=== PATIENT | female | born 1960 | race Caucasian/White ===

== ENCOUNTER 2020-03-29 12:51 | Emergency (ER) | payer OTHER, SELFPAY ==
[2020-03-29 13:21] VITALS: BP 175/83; PULSE 75; RESP 16; TEMP 36.1; O2SAT 99; BMI 26.5
--- NOTE | 2020-03-29 13:51 | ED.GENADULT ---
HPI - General Adult General Chief complaint: General Medical Stated complaint: hi bp Time Seen by Provider: 03/29/20 13:51 Source: patient Mode of arrival: ambulatory Limitations: no limitations History of Present Illness HPI narrative: THIS IS A 59 YEARS OLD FEMALE PRESENTED TO THE EMERGENCY DEPARTMENT WITH A CHIEF COMPLAINT OF ELEVATED BLOOD PRESSURE. SHE REPORTS A MULTIPLE SIDE EFFECTS FROM BLOOD PRESSURE MEDICATION SHE STATES SHE IS VERY SENSITIVE TO MEDICATION. SHE HAS NO CHEST PAIN, NO SHORTNESS OF BREATH SHE APPEAR ANXIOUS. SHE HAS BEEN ON [employer]CIUM CHANNEL JOSE, BETA JOSE SHE HAD A REACTION OF 0 ABOVE MEDICATION Onset (ago): month(s) Radiation: non-radiation Severity: mild Quality: other Relieving factors: none Exacerbating factors: none Associated symptoms: denies other symptoms Related Data Allergies Allergy/AdvReac Type Severity Reaction Status Date / Time acetaminophen [From Percocet] Allergy Palpitation Verified 03/29/20 13:28 s Iodinated Contrast Media Allergy Palpitation Verified 03/29/20 13:28 s morphine Allergy Palpitation Verified 03/29/20 13:28 s oxycodone [From Percocet] Allergy Palpitation Verified 03/29/20 13:28 s Review of Systems Review of Systems: Yes all other systems are reviewed and are negative Cardiovascular: Cardiovascular: Denies chest pain, Denies chest pain at rest, Denies chest pain with activity, Denies dyspnea and Denies dyspnea on exertion Respiratory: Respiratory: Reports no additional respiratory complaints, Denies dyspnea and Denies dyspnea on exertion Gastrointestinal: Gastrointestinal: Denies no additional gastrointestinal complaints PMFSH Past Medical History Medical History Anxiety Depression Fibromyalgia HTN (hypertension) Hypothyroid Social History Social History Smoking Status: Never smoker Use of substances other than those prescribed or required for medical reasons: No Advance Directives: No Advance Directives Information Provided: No Physical Exam Vital Signs: Vital Signs: Last Vital Signs Temp 97.4 F 03/29/20 15:52 Pulse 79 03/29/20 15:52 Resp 16 03/29/20 15:52 BP 152/77 H 03/29/20 15:52 Pulse Ox 99 03/29/20 15:52 Body Mass Index 26.5 Const: General: cooperative Orientation/consciousness: oriented to person, oriented to place and patient oriented x3 HENMT: Head: Yes normal to inspection Face and sinus: Yes normal facial exam Mouth: Normal oral and palatal mucosa present Neck: Neck: Yes normal visual inspection and Yes full ROM Resp: Effort & Inspection: normal respiratory effort and able to speak in complete sentences Cardio: Jugular venous distension: no JVD Rate: regular rate Rhythm: regular rhythm GI: Inspection: Yes normal to inspection Palpation (GI): Soft to palpation, nontender and no guarding Skin: General skin exam: no rashes or lesions noted and elasticity normal Neuro: General: oriented to person, oriented to place and patient oriented x3 Course Reevaluation(s) Reevaluation #1: RE-EVALUATION OR DEPRESSION AT THIS TIME , SHE REMAIN HEMODYNAMICALLY STABLE, BLOOD PRESSURE IS BETTER, SHE IS CHEST PAIN-FREE NO DYSPNEA. THE LUMP TESTS WERE REVIEWED WITH THE PATIENT WELL THE CHEST X-RAY AND THE EKG. AT THIS POINT WE WILL DISCHARGE THE PATIENT HOME SHE HAS ASKED ME TO GIVE HER THE NAME OF OUR CARDIOLOGISTS FOR FOLLOW-UP OF HER HIGH BLOOD PRESSURE I WILL GIVEN THE NUMBER OF DR MENDOZA Medical Decision Making Lab Data Result diagrams: 03/29/20 15:49 03/29/20 14:33 Labs: Lab Results 03/29/20 03/29/20 03/29/20 Range/Units 14:33 14:33 15:49 WBC 8.1 (4.8-10.8) X10*3/uL RBC 5.17 (4.20-5.50) X10*6/uL Hgb 14.6 (12.0-16.0) g/dl Hct 45.0 (37-47) % MCV 87.0 (80-98) fL MCH 28.2 (27.0-33.0) pg MCHC 32.4 (31.0-35.0) g/dl RDW 12.9 (11.0-16.0) % Plt Count 290 (160-400) X10*3/uL MPV 10.2 (9.4-12.3) fL Immature Gran % (Auto) 0.1 (0.0-0.4) % Neut % (Auto) 66.5 (45-73) % Lymph % (Auto) 25.2 (20-40) % [place] % (Auto) 7.6 (2-11) % Eos % (Auto) 0.2 (0-4) % Baso % (Auto) 0.4 (0-2) % Lymph # (Auto) 2.0 (1.2-4.9) X10*3/uL [place] # (Auto) 0.6 (0.1-1.2) X10*3/uL Eos # (Auto) 0.0 (0.0-0.4) X10*3/uL Baso # (Auto) 0.0 (0.0-0.2) X10*3/uL Abs Immat Gran (auto) 0.01 (0.00-0.03) X10*3/uL Absolute Neuts (auto) 5.4 (2.0-8.3) X10*3/uL Absolute Nucleated RBC 0.000 (0.0-0.012) X10*3/uL Nucleated RBC % (auto) 0.0 (0.0-0.2) /100WBC Sodium 137 (135-145) mmol/L Potassium 4.2 (3.3-5.1) mmol/l Chloride 99 (96-108) mmol/L Carbon Dioxide 27 (22-29) mmol/L Anion Gap 15 (12-20) BUN 9 (9-16) mg/dL Creatinine 0.78 (0.5-1.4) mg/dL Estim Creat Clear Calc 71.0 Estimated GFR > 60 Random Glucose 84 (60-115) mg/dL Calcium 9.8 (8.4-10.2) mg/dL Total Bilirubin 0.5 (0.0-1.0) mg/dL AST 23 (5-31) U/L ALT 27 (0-31) U/L Alkaline Phosphatase 93 (39-117) U/L Troponin I High Sens < 3.5 (<3.5-17.0) ng/L Total Protein 7.9 (6.5-8.0) g/dL Albumin 5.0 (3.5-5.0) g/dL ECG Data Attestation: I personally reviewed and interpreted this ECG as follows: Pacemaker model: NORMAL SINUS RHYTHM RATE IS 69, NORMAL INTERVALS, ST-T SEGMENTS ISOELECTRIC Discharge Plan Discharge Clinical Impression: Hypertension Qualifiers: Hypertension type: essential hypertension Qualified Code(s): I10 - Essential (primary) hypertension Patient Disposition: Home, Self-Care Additional Instructions: PLEASE FOLLOW-UP WITH YOUR PRIMARY CARE PHYSICIAN OR OUTBOARD MOTOR ASSEMBLER RETURN IF YOU WERE SEVERE UPPER CHEST PAIN INTO SHORT OF BREATH ANY CONCERN Referrals: Leander Mcclure MD [Physician] - 2 days
--- NOTE | 2020-03-29 14:01 | ECG_ITS ---
Test Reason : SOB Blood Pressure : / mmHG Vent. Rate : 069 BPM Atrial Rate : 069 BPM P-R Int : 146 ms QRS Dur : 086 ms QT Int : 390 ms P-R-T Axes : 042 -04 007 degrees QTc Int : 417 ms Normal sinus rhythm Low voltage QRS RSR' or QR pattern in V1 suggests right ventricular conduction delay Abnormal ECG When compared with ECG of 01-JUL-2004 09:58, Heart rate has decreased Referred By: Chandu Palomino Electronically Signed By:PALAK CONNOLLY MD
--- NOTE | 2020-03-29 14:01 | XR_ITS ---
EXAMINATION: XR CHEST CLINICAL INFORMATION: Chest pain COMPARISON: None TECHNIQUE: Frontal view of the chest was obtained. FINDINGS: No significant abnormality is noted involving the heart, lungs, mediastinum, bony thorax or soft tissues. XR/XR chest 1V IMPRESSION: Unremarkable examination.
[2020-03-29 15:14] LABS: Alanine Aminotransferase 27 U/L (0-31); Alkaline Phosphatase 93 U/L (39-117); Anion Gap 15 (12-20); Aspartate Amino Transferase 23 U/L (5-31); Bilirubin Total 0.5 mg/dL (0.0-1.0); Blood Urea Nitrogen 9 mg/dL (9-16); Calcium 9.8 mg/dL (8.4-10.2); Carbon Dioxide 27 mmol/L (22-29); Chloride 99 mmol/L (96-108); Estimated Glomerular Filt Rate > 60; Glucose Random 84 mg/dL (60-115); Potassium 4.2 mmol/l (3.3-5.1); Sodium 137 mmol/L (135-145); Total Protein 7.9 g/dL (6.5-8.0)
[2020-03-29 15:21] LABS: Troponin-I High Sensitivity < 3.5 ng/L (<3.5-17.0)
[2020-03-29 15:52] VITALS: BP 152/77; PULSE 79; RESP 16; TEMP 36.3; O2SAT 99
[2020-03-29 15:53] LABS: MANUAL DIFF FLAG NO
[2020-03-29 15:54] LABS: Basophils Percent Auto 0.4 % (0-2); Eosinophils Percent Auto 0.2 % (0-4); Hemoglobin 14.6 g/dl (12.0-16.0); Imm Gran Abs Auto 0.01 X10*3/uL (0.00-0.03); Imm Gran Pct Auto 0.1 % (0.0-0.4); Lymphocytes Percent Auto 25.2 % (20-40); Mean Corpuscular HGB Conc 32.4 g/dl (31.0-35.0); Mean Corpuscular Hemoglobin 28.2 pg (27.0-33.0); Mean Platelet Volume 10.2 fL (9.4-12.3); Monocytes Absolute Auto 0.6 X10*3/uL (0.1-1.2); Monocytes Percent Auto 7.6 % (2-11); Neutrophils Absolute Auto 5.4 X10*3/uL (2.0-8.3); Neutrophils Percent Auto 66.5 % (45-73); Platelet Count 290 X10*3/uL (160-400); Red Blood Count 5.17 X10*6/uL (4.20-5.50); Red Cell Distribution Width 12.9 % (11.0-16.0); White Blood Count 8.1 X10*3/uL (4.8-10.8)
--- NOTE | 2020-03-29 16:01 | PC.NURSE ---
TRIAGED C/O ELEAVTED BPS AT HOME, MANY ISSUES WITH PREVIOUS PRESCRIBED ANTIHYPERTENSIVES. ASYMPTOMATIC. ARRIVED WITH SBP IN 180S, CURRENTLY IN 140S, LOW 150S.
== END 2020-03-29 16:11 | disposition home or self-care (01) ==
PROVIDERS: Emergency Provider Emergency Medicine; PCP Family Medicine
DX: I10 Essential (primary) hypertension (principal); Z79.899 Other long term (current) drug therapy
CPT/HCPCS: 36415; 71045; 80053; 84484; 85025; 93005; 99283; 99284

== ENCOUNTER 2021-06-06 16:04 | Emergency (ER) | payer OTHER, SELFPAY ==
[2021-06-06 16:13] VITALS: BP 174/82; PULSE 81; RESP 16; TEMP 36.7; O2SAT 99; BMI 24.6
--- NOTE | 2021-06-06 17:58 | ED_ITS ---
HPI - Wound/Laceration General Chief Complaint: Wound/Laceration Stated Complaint: finger lac, loss of sensation Time Seen by Provider: 06/06/21 16:35 History of Present Illness HPI narrative: Patient complains of small cut to the left middle finger which she got a week ago but still feels some tingling and numbness in her fingertip of the left middle finger She also complains that her jaw hurts a little and she is worried about not being up-to-date on her tetanus shot and wants to be checked She is eating and drinking normally has no fevers no sore throat Related Data Allergies Allergy/AdvReac Type Severity Reaction Status Date / Time acetaminophen [From Allergy Palpitation Verified 03/29/20 13:28 Percocet] s Iodinated Contrast Allergy Palpitation Verified 03/29/20 13:28 Media s morphine Allergy Palpitation Verified 03/29/20 13:28 s oxycodone [From Allergy Palpitation Verified 03/29/20 13:28 Percocet] s Review of Systems Verdana 4l Review of Systems: Verdana 4d Verdana 4d Positive for left 3rd finger laceration and tingling in the finger and some jaw pain Negatives no fever no chills no dizziness or weakness no fainting no feeling faint no muscle spasms no headache no neck pain no trouble chewing no troubletrouble breathing or swallowing no chest pain no shortness breath no numbness weakness or tingling Yes all other systems are reviewed and are negative [facility] Past Medical History Source: nursing notes reviewed Medical History Anxiety Depression Fibromyalgia HTN (hypertension) Hypothyroid Social History Social History Advance Directives: No Advance Directives Information Provided: No Patient : No Physical Exam Verdana 4l Vital Signs: Verdana 4d Verdana 4d Vital Signs: Verdana 4d Verdana 4Bd Last Vital Signs Verdana 4d [employer] Signal [employer]ician New 4d [employer] Signal Technician New 4d Temp 98.0 F 06/06/21 16:13 Railroad Signal Technician New 4d Pulse 81 06/06/21 16:13 Railroad Signal Technician New 4d Resp 16 06/06/21 16:13 BP 174/82 H 06/06/21 16:13 Pulse Ox 99 06/06/21 16:13 BMI result Body Mass Index 24.6 General appearance no acute distress Head is normocephalic atraumatic The jaw is nontender fully mobile with no discomfort the mouth was normal in appearance with no abscesses well-hydrated no swelling The neck was supple The pharynx was clear with no redness swelling or exudate, mucous membranes are moist Respiratory no distress Extremities full range of motion x4 The left middle finger had a small laceration without swelling no surrounding erythema she said compared to the right the tip of her left index finger had decreased sensation but she could feel and she had full range of motion in the finger with normal tendon function and full strength in all joints, no sign of any infection Course Course Course Narrative: The small laceration to the left middle finger is not infected and was covered with a Band-Aid The patient has no evidence of lock jaw or tetanus and was given a tetanus shot Because she perceives decreased sensation in finger I referred her to the hand doctor Discharge Plan Discharge Clinical Impression: Laceration Patient Disposition: Home, Self-Care Additional Instructions: The small cut on her left middle finger does not look infected if you have decreased sensation in the finger after a cut you should follow with the hand doctor for recheck but this is usually self-limited and will probably get better on its own You do not have any evidence of a tetanus infection and we gave you a booster tetanus shot today You are welcome to return any time for any worse condition or any concerns Referrals: Fabiola Hancock MD [Physician] - 1 week (Patient complains of decreased sensation and left 3rd finger after a laceration) Discharge Date/Time: 06/06/21 18:31
[2021-06-06] MEDS: Diphth,Pertus(ACell),Tet Adult 0.5 ML SYRINGE IM (18:09)
== END 2021-06-06 18:31 | disposition home or self-care (01) ==
PROVIDERS: Emergency Provider Internal Medicine; PCP Family Medicine
DX: S61.213A Laceration without foreign body of left middle finger without damage to nail, initial encounter (principal); W26.0XXA Contact with knife, initial encounter; Y93.9 Activity, unspecified; Y92.9 Unspecified place or not applicable; Y99.9 Unspecified external cause status
CPT/HCPCS: 90471; 90715; 99283

== ENCOUNTER 2021-06-06 18:53 | Emergency (ER) | payer OTHER, SELFPAY | END 2021-06-06 19:33 | disposition left against medical advice (07) | LOC: HO.ED 19:31 | PROVIDERS: Emergency Provider Emergency Medicine | DX: R42 Dizziness and giddiness (principal); R51.9 Headache, unspecified ==

== ENCOUNTER 2021-07-18 15:39 | Emergency (ER) | payer OTHER, SELFPAY ==
[2021-07-18 16:13] VITALS: BP 152/86; PULSE 81; RESP 19; TEMP 36.6; O2SAT 98; BMI 24.6
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
[2021-07-18 17:35] LABS: MANUAL DIFF FLAG NO
[2021-07-18 17:37] LABS: Basophils Percent Auto 0.4 % (0-2); Eosinophils Percent Auto 0.2 % (0-4); Hematocrit 45.3 % (37.0-47.0); Hemoglobin 14.3 g/dl (12.0-16.0); Imm Gran Abs Auto 0.01 X10*3/uL (0.00-0.03); Imm Gran Pct Auto 0.1 % (0.0-0.4); Lymphocytes Absolute Auto 1.8 X10*3/uL (1.2-4.9); Lymphocytes Percent Auto 20.7 % (20-40); Mean Corpuscular HGB Conc 31.6 g/dl (31.0-35.0); Mean Corpuscular Hemoglobin 28.4 pg (27.0-33.0); Mean Corpuscular Volume 90.1 fL (80.0-98.0); Monocytes Absolute Auto 0.5 X10*3/uL (0.1-1.2); Monocytes Percent Auto 5.4 % (2-11); Neutrophils Absolute Auto 6.3 x10*3/uL (2.0-8.3); Neutrophils Percent Auto 73.2 % (45-73); Platelet Count 318 X10*3/uL (160-400); Red Blood Count 5.03 X10*6/uL (4.20-5.50); Red Cell Distribution Width 12.6 % (11.0-16.0); White Blood Count 8.6 X10*3/uL (4.8-10.8)
[2021-07-18 17:41] LABS: Strep A Nucleic Acid Negative (Negative)
[2021-07-18 17:46] VITALS: BP 159/76; PULSE 74; RESP 17; TEMP 36.9; O2SAT 98
[2021-07-18 17:56] LABS: Appearance Urine CLEAR; Color Urine STRAW; Glucose Urine UA NEG (NEG); Leukocyte Esterase Urine NEG (NEG); Nitrite Urine NEG (NEG); Specific Gravity - Urine <= 1.005 (1.005-1.025); Urine Blood NEG (NEG); Urine Ketones NEG (NEG); Urine Protein NEG (NEG-TRACE)
[2021-07-18 17:57] LABS: Alanine Aminotransferase 19 U/L (0-31); Alkaline Phosphatase 87 U/L (39-117); Anion Gap 13 (12-20); Aspartate Amino Transferase 23 U/L (5-31); Bilirubin Direct 0.2 mg/dL (0.0-0.5); Bilirubin Total 0.6 mg/dL (0.0-1.0); Blood Urea Nitrogen 10 mg/dL (9-16); Calcium 10.9 mg/dL (8.4-10.2); Carbon Dioxide 31 mmol/L (22-29); Chloride 101 mmol/L (96-108); Creatinine Clr Calc Pharmacy 70.4; Estimated Glomerular Filt Rate > 60; Glucose Random 84 mg/dL (60-115); Magnesium 2.3 mg/dL (1.6-2.6); Phosphorus 3.5 mg/dL (2.7-4.5); Potassium 4.7 mmol/L (3.3-5.1); Sodium 140 mmol/L (135-145); Total Protein 8.3 g/dL (6.5-8.0)
[2021-07-18 18:04] LABS: RBC Urine 0 /HPF (0); Squamous Epithelial Cell Urine TRACE /LPF; WBC Urine 0 /HPF (0-4)
[2021-07-19 13:52] LABS: CT PCR NOT DETECTED (Not Detect.); NG PCR NOT DETECTED (Not Detect.)
== END 2021-07-18 18:24 | disposition home or self-care (01) ==
PROVIDERS: Emergency Provider Emergency Medicine Emergency Medical Services; PCP Family Medicine
DX: R53.1 Weakness (principal); I10 Essential (primary) hypertension
CPT/HCPCS: 36415; 80048; 80076; 81001; 83735; 84100; 85025; 87491; 87591; 87651; 99283

== ENCOUNTER 2021-08-20 12:59 | Outpatient (REF) | payer OTHER, SELFPAY ==
--- NOTE | ~2021-08-20 | US_ITS ---
EXAMINATION: US PELVIS CLINICAL INFORMATION: Pelvic pain COMPARISON: None TECHNIQUE: Ultrasound of the pelvis is performed using both transabdominal and transvaginal transducers along with Doppler. Transvaginal imaging is performed due to inadequate visualization transabdominally. FINDINGS: Uterus: The uterus is anteverted and measures 6.7 x 2.9 x 4.7 cm. The double wall endometrial thickness is 3 mm. The uterus is smooth in contour and has normal myometrial echogenicity. There is a 1.1 x 0.5 x 0.9 cm myometrial fibroid in the left anterior mid body of the uterus. Adnexa: Both ovaries are visualized. There is normal color flow to the adnexa. There is no ovarian torsion. There is no pelvic ascites or fluid collection. Right ovary measures 1.6 x 1.2 x 1.2 cm. Left ovary measures 2.3 x 1 x 1.5 cm. US/US pelvic and transvaginal IMPRESSION: 1.1 cm myometrial fibroid in the left anterior mid body of the uterus. Otherwise normal pelvic ultrasound.
== END 2021-08-20 13:00 | disposition home or self-care (01) ==
LOC: HO.US 12:59
PROVIDERS: Visit Provider Family Medicine
DX: R10.2 Pelvic and perineal pain (principal)
CPT/HCPCS: 76830; 76856

== ENCOUNTER 2021-09-18 09:22 | Outpatient (REF) | payer OTHER, SELFPAY ==
[2021-09-18 10:45] LABS: Alanine Aminotransferase 18 U/L (0-31); Albumin Level 4.6 g/dL (3.5-5.0); Alkaline Phosphatase 74 U/L (39-117); Anion Gap 13 (12-20); Aspartate Amino Transferase 17 U/L (5-31); Bilirubin Total 0.4 mg/dL (0.0-1.0); Blood Urea Nitrogen 24 mg/dL (9-16); Calcium 10.1 mg/dL (8.4-10.2); Carbon Dioxide 27 mmol/L (22-29); Chloride 103 mmol/L (96-108); Estimated Glomerular Filt Rate > 60; Glucose Fasting 93 mg/dL (60-99); Potassium 4.4 mmol/L (3.3-5.1); Sodium 139 mmol/L (135-145); Total Protein 7.3 g/dL (6.5-8.0); Uric Acid 4.7 mg/dL (2.4-5.7)
[2021-09-18 11:07] LABS: Erythrocyte Sedimentation Rate 10 MM/HR (0-20)
[2021-09-18 11:08] LABS: Free T4 (Free Thyroxine) 1.29 ng/dL (0.71-1.85); Vitamin D 25-OH Total 21.8 ng/mL (>30)
[2021-09-19 16:40] LABS: Calcium, Random Urine 15.4 mg/dL
[2021-09-21 19:27] LABS: Thyroglobulin Antibodies <1 IU/mL (< or = 1); Thyroid Peroxidase Antibodies <1 IU/mL (<9)
[2021-09-22 18:01] LABS: Calcium (PTHI) 10.1 mg/dL (8.6-10.4); PTHI 60 pg/mL (16-77)
[2021-09-22 18:17] LABS: Calcium, Ionized 5.3 mg/dL (4.8-5.6)
== END 2021-09-18 09:23 | disposition home or self-care (01) ==
LOC: HO.LAB 09:22
PROVIDERS: Absent Provider Nurse Practitioner Family; PCP Internal Medicine; Visit Provider Internal Medicine
DX: M25.50 Pain in unspecified joint (principal); E03.9 Hypothyroidism, unspecified; E83.52 Hypercalcemia
CPT/HCPCS: 36415; 80053; 82306; 82310; 82330; 83970; 84439; 84443; 84550; 85652; 86376; 86800

== ENCOUNTER 2021-12-17 11:16 | Outpatient (REF) | payer OTHER, SELFPAY ==
[2021-12-17 11:47] LABS: MANUAL DIFF FLAG NO
[2021-12-17 12:18] LABS: Basophils Percent Auto 0.5 % (0-2); Eosinophils Absolute Auto 0.1 X10*3/uL (0.0-0.4); Eosinophils Percent Auto 0.8 % (0-4); Hematocrit 44.9 % (37.0-47.0); Hemoglobin 14.4 g/dl (12.0-16.0); Imm Gran Abs Auto 0.02 X10*3/uL (0.00-0.03); Imm Gran Pct Auto 0.3 % (0.0-0.4); Lymphocytes Absolute Auto 1.7 X10*3/uL (1.2-4.9); Lymphocytes Percent Auto 26.9 % (20-40); Mean Corpuscular HGB Conc 32.1 g/dl (31.0-35.0); Mean Corpuscular Hemoglobin 28.2 pg (27.0-33.0); Mean Corpuscular Volume 87.9 fL (80.0-98.0); Monocytes Absolute Auto 0.4 X10*3/uL (0.1-1.2); Monocytes Percent Auto 5.7 % (2-11); Neutrophils Absolute Auto 4.1 x10*3/uL (2.0-8.3); Neutrophils Percent Auto 65.8 % (45-73); Platelet Count 321 X10*3/uL (160-400); Red Blood Count 5.11 X10*6/uL (4.20-5.50); Red Cell Distribution Width 12.5 % (11.0-16.0); White Blood Count 6.3 X10*3/uL (4.8-10.8)
[2021-12-17 12:45] LABS: Alanine Aminotransferase 28 U/L (0-31); Albumin Level 4.8 g/dL (3.5-5.0); Alkaline Phosphatase 87 U/L (39-117); Anion Gap 17 (12-20); Aspartate Amino Transferase 26 U/L (5-31); Bilirubin Total 0.6 mg/dL (0.0-1.0); Blood Urea Nitrogen 16 mg/dL (9-16); Calcium 10.2 mg/dL (8.4-10.2); Carbon Dioxide 29 mmol/L (22-29); Chloride 102 mmol/L (96-108); Cholesterol 279 mg/dL; Estimated Glomerular Filt Rate > 60; Glucose Fasting 93 mg/dL (60-99); HDL Cholesterol 83 mg/dL; LDL Cholesterol Calculated 180 mg/dl; Potassium 5.2 mmol/L (3.3-5.1); Sodium 143 mmol/L (135-145); Total Protein 7.9 g/dL (6.5-8.0); Triglycerides 81 mg/dL
[2021-12-17 13:56] LABS: Appearance Urine CLEAR; Color Urine YELLOW; Glucose Urine UA NEG (NEG); Leukocyte Esterase Urine NEG (NEG); Nitrite Urine NEG (NEG); PH 5.5 (5.0-8.0); Specific Gravity - Urine >= 1.030 (1.005-1.025); Urine Blood NEG (NEG); Urine Ketones NEG (NEG); Urine Protein NEG (NEG-TRACE)
[2021-12-18 08:00] LABS: HBc Num1 0.08 S/CO (0.00-0.79); HBsAGNum1 0.17 S/CO (0.00-0.99); HIV AB/AG Nonreactive (Nonreactive); HIV Num 1 0.07 S/CO (0.00-0.99); Hepatitis B Core Antibody Nonreactive (Nonreactive); Hepatitis B Surface Antigen Negative (Negative); ~HepC Num1 0.06 S/CO (0.00-0.79); ~Hepatitis B Surface Antibody NONREACTIVE (Nonreactive); ~Hepatitis C Antibody Nonreactive (Nonreactive)
[2021-12-18 08:29] LABS: Syphilis Screen Nonreactive (Nonreactive)
== END 2021-12-17 11:17 | disposition home or self-care (01) ==
LOC: HO.LAB 11:16
PROVIDERS: Absent Provider Nurse Practitioner Family; PCP Internal Medicine; Visit Provider Internal Medicine
DX: Z00.00 Encounter for general adult medical examination without abnormal findings (principal); R10.814 Left lower quadrant abdominal tenderness; E03.9 Hypothyroidism, unspecified; E78.5 Hyperlipidemia, unspecified; Z11.3 Encounter for screening for infections with a predominantly sexual mode of transmission; Z11.4 Encounter for screening for human immunodeficiency virus [HIV]; Z11.59 Encounter for screening for other viral diseases
CPT/HCPCS: 36415; 80053; 80061; 81003; 84443; 85025; 86704; 86706; 86780; 86803; 87340; 87389

== ENCOUNTER 2022-01-01 11:14 | Outpatient (REF) | payer OTHER, SELFPAY ==
--- NOTE | ~2022-01-01 | CT_ITS ---
EXAMINATION: CT ABDOMEN AND PELVIS WITHOUT CONTRAST CLINICAL INFORMATION: Left lower quadrant abdominal tenderness. COMPARISON: Pelvic ultrasound 08/20/2021 TECHNIQUE: Multidetector volumetric imaging was performed from the superior aspect of the liver through the pubic symphysis. Sagittal and coronal reformatted images were obtained on the technologist's workstation. This CT examination was performed using dose optimization techniques as appropriate, variously including the following: *Automated exposure control *Adjustment of mA and/or kV according to patient size (this includes techniques or standardized protocols for targeted exams where dose is matched to indication/reason for exam; i.e. extremities or head) *Use of iterative reconstruction technique DLP: 345 mGy-cm FINDINGS: LUNG BASES: The visualized lung bases are unremarkable. LIVER, GALLBLADDER, AND BILIARY TREE: The liver is normal in size, shape, and attenuation. No focal hepatic lesion or biliary ductal dilatation is present. Cholecystectomy. PANCREAS: Unremarkable. SPLEEN: Unremarkable. ADRENAL GLANDS: Unremarkable. KIDNEYS AND URETERS: The kidneys are normal in size, shape, and attenuation. No hydronephrosis, hydroureter, or calculi seen. No perinephric stranding. BLADDER: Unremarkable. GASTROINTESTINAL TRACT: The stomach is unremarkable. Normal caliber of the small bowel. No obstruction. No colonic wall thickening or inflammatory change. Scattered colonic diverticulosis without diverticulitis. ABDOMINAL WALL: No significant hernia is appreciated. LYMPH NODES: Normal. VASCULAR: Unremarkable. PELVIC VISCERA: The uterus and adnexa are unremarkable. OSSEOUS STRUCTURES: No acute or suspicious osseous abnormality. CT/CT abdomen pelvis wo con IMPRESSION: No acute finding in the abdomen or pelvis. No inflammatory changes. Fleischner guidelines were followed.
[2022-01-01] MEDS: Barium Sulfate Oral (Mocha) 450 ML ORAL.SUSP 900 ML PO (14:13)
== END 2022-01-01 11:15 | disposition home or self-care (01) ==
LOC: HO.CT 11:14
PROVIDERS: Visit Provider Nurse Practitioner Family
DX: R10.814 Left lower quadrant abdominal tenderness (principal)
CPT/HCPCS: 74176

== ENCOUNTER 2022-01-19 14:33 | Outpatient (REF) | payer OTHER, SELFPAY ==
[2022-01-20 05:16] LABS: CT PCR NOT DETECTED (Not Detect.); NG PCR NOT DETECTED (Not Detect.)
[2022-01-20 15:53] LABS: BV Int Neg Control Negative (Negative); BV Int Pos Control Positive (Positive)
[2022-01-23 05:51] LABS: HPV mRNA E6/E7 rflx Not Detected (Not Detected)
== END 2022-01-19 14:34 | disposition home or self-care (01) ==
LOC: HO.LNP 14:33
PROVIDERS: Visit Provider Advanced Practice Midwife
DX: Z01.419 Encounter for gynecological examination (general) (routine) without abnormal findings (principal); Z11.51 Encounter for screening for human papillomavirus (HPV); Z11.3 Encounter for screening for infections with a predominantly sexual mode of transmission
CPT/HCPCS: 87480; 87491; 87510; 87591; 87624; 87660; 88142

== ENCOUNTER → 2022-03-22 13:12 | Outpatient (BNVA) | payer OTHER, SELFPAY | PROVIDERS: PCP Internal Medicine; Visit Provider Urology | DX: N95.2 Postmenopausal atrophic vaginitis (principal); N36.2 Urethral caruncle | CPT/HCPCS: 99202 ==

== ENCOUNTER 2022-04-12 14:19 | Outpatient (REF) | payer OTHER, SELFPAY ==
[2022-04-12 16:11] LABS: Alanine Aminotransferase 16 U/L (0-31); Albumin Level 4.8 g/dL (3.5-5.0); Alkaline Phosphatase 81 U/L (39-117); Anion Gap 14 (12-20); Aspartate Amino Transferase 16 U/L (5-31); Bilirubin Total 0.5 mg/dL (0.0-1.0); Blood Urea Nitrogen 13 mg/dL (9-16); Calcium 10.3 mg/dL (8.4-10.2); Carbon Dioxide 29 mmol/L (22-29); Chloride 103 mmol/L (96-108); Estimated Glomerular Filt Rate > 60; Glucose Random 83 mg/dL (60-115); Potassium 4.6 mmol/L (3.3-5.1); Sodium 141 mmol/L (135-145); Thyroid Stimulating Hormone 3.41 uIU/mL (0.32-4.0); Total Protein 7.5 g/dL (6.5-8.0)
== END 2022-04-12 14:20 | disposition home or self-care (01) ==
LOC: HO.LAB 14:19
PROVIDERS: PCP Internal Medicine; Visit Provider Internal Medicine
DX: E03.9 Hypothyroidism, unspecified (principal); R19.4 Change in bowel habit
CPT/HCPCS: 36415; 80053; 84443